=== PATIENT | male | born 1940 | race African-American/Black ===

== ENCOUNTER 2020-10-28 09:39 | Emergency (ER) | payer MEDICARE, MEDICAID ==
[~2020-10-28] VITALS: Ht 172.7 cm; Wt 72.0 kg
[~2020-10-28 09:39] MED LIST: AMLO5TAB88 PO; ASPI-1497 MT
[2020-10-28 11:53] LABS: BASOPHILS % 0.8 % (0.0-2.0); EOSINOPHILS % 2.4 % (0.0-5.0); HEMATOCRIT. 35.5 % (42.0-52.0); HEMOGLOBIN. 11.8 g/dL (14.0-18.0); LYMPHOCYTES % 22.9 % (20.0-50.0); MEAN CORPUSCULAR HEMOGLOBIN 30.9 pg (28.0-32.0); MEAN CORPUSCULAR VOLUME 93.4 fL (80.0-94.0); MEAN PLATELET VOLUME 7.8 fl (7.4-10.4); MONOCYTES % 9.9 % (2.0-8.0); PLATELET 327 x1000/uL (130-400); RED CELL DISTRIBUTION WIDTH 17.6 % (11.6-14.6)
[2020-10-28 11:58] LABS: CHLORIDE 107 mEq/L (98-107)
[2020-10-28 13:31] LABS: KETONES URINE NEGATIVE (NEGATIVE); LEUKOCYTE ESTERASE URINE NEGATIVE (NEGATIVE); NITRITE URINE NEGATIVE (NEGATIVE); OCCULT BLOOD URINE 3+ (NEGATIVE); PH URINE 6.5 (4.5-8.0); PROTEIN URINE 3+ (NEGATIVE); SPECIFIC GRAVITY URINE 1.022 (1.005-1.030)
[2020-10-28 13:32] LABS: CLARITY URINE CLOUDY (CLEAR); COLOR URINE BLOODY (YELLOW)
[2020-10-28] MEDS ORDERED: CEPH500T MT (14:00)
[2020-10-28 14:10] VITALS: BP 171/81
== END 2020-10-28 14:12 | disposition home or self-care (01) ==
LOC: ER 09:39
DX: R31.9 Hematuria, unspecified (principal); D72.829 Elevated white blood cell count, unspecified; I10 Essential (primary) hypertension; Z79.82 Long term (current) use of aspirin
CPT/HCPCS: 36415; 76770; 80048; 81003; 85025; 93005; 99285